=== PATIENT | male | born 1975 | race Caucasian/White ===

== ENCOUNTER 2017-03-16 22:48 | Emergency (ER) | payer BC ==
[~2017-03-16] VITALS: Ht 175.2 cm; Wt 104.3 kg
[~2017-03-16 22:48] MED LIST: ANAPROX DS550 MG PO; AUGMENTIN 875 M1 TAB PO; EFFEXOR75 MG PO; LISINOPRIL5 MG PO; LOMOTIL 0.025 M1 TA1 PO; VICODIN 500 MG-1 TAB PO
[2017-03-16 22:54] VITALS: BP 129/88
[2017-03-17] MEDS ORDERED: Motrin,Rufen800 MG PO (00:47)
[2017-03-17] MEDS ORDERED: ATIVAN0.5 MG PO (13:23)
[2017-03-17] MEDS ORDERED: ATENOLOL25 MG PO (13:24)
[2017-03-17] MEDS ORDERED: NEURONTIN300 MG PO (13:24)
[2017-03-17] MEDS ORDERED: CLARITIN10 MG PO (13:24)
[2017-03-17] MEDS ORDERED: EFFEXOR XR37.5 M1 PO (13:25)
[2017-03-17] MEDS ORDERED: XARE20MG PO (15:28)
[2017-03-17] MEDS ORDERED: XARELTO15 M1 PO (15:28)
== END 2017-03-17 02:27 | disposition home or self-care (01) ==
LOC: ED 22:48
DX: I80.00 Phlebitis and thrombophlebitis of superficial vessels of unspecified lower extremity (principal)

== ENCOUNTER 2017-03-17 10:55 | Inpatient (IN) | payer BC ==
[~2017-03-17] VITALS: Ht 175.2 cm; Wt 106.2 kg
[~2017-03-17 10:55] MED LIST changes: +Motrin,Rufen800 MG PO
[2017-03-17 11:00] VITALS: BP 127/88
[2017-03-17 11:16] LABS: BASO % 0.5 % (0.0-1.0); EOS # 0.1 10*3/uL (0.0-0.4); EOS % 1.6 % (1.0-4.0); HEMATOCRIT 46.9 % (42.0-52.0); HEMOGLOBIN 16.3 g/dl (14.0-18.0); LYMPH # 1.8 10*3/uL (1.3-4.4); LYMPH % 20.5 % (27.0-41.0); MEAN CELL VOLUME 84.4 fl (80.0-94.0); MEAN CORPUSCULAR HGB 29.3 pg (27.0-31.0); MEAN CORPUSCULAR HGB CONC 34.8 g/dl (33.0-37.0); MEAN PLATELET VOLUME 9.4 fl (9.6-12.3); MONO # 0.7 10*3/uL (0.1-1.0); MONO % 7.7 % (3.0-9.0); NEUT % 69.4 % (47.0-73.0); PLATELET COUNT AUTOMATED 189 10*3/uL (130-400); RED BLOOD COUNT 5.56 10*6/uL (4.50-5.90); RED CELL DISTRI WIDTH 12.1 % (0-14.5); WHITE BLOOD COUNT 8.6 10*3/uL (4.8-10.8)
[2017-03-17 11:24] LABS: PROTHROMBIN TIME 10.5 SECONDS (9.0-12.4)
[2017-03-17 11:35] LABS: ALKALINE PHOSPHATASE 79 U/L (45-117); BILIRUBIN, TOTAL 0.5 mg/dl (0.2-1.0); BUN 18 mg/dl (7-24); CARBON DIOXIDE 30 mmol/L (21-32); CHLORIDE 105 mmol/L (98-107); EST GLOM FILT AFRICAN AMERICAN > 60 ml/min; GLUCOSE 209 mg/dL (65-99); MAGNESIUM 1.9 mg/dL (1.5-2.1); POTASSIUM 4.1 mmol/L (3.5-5.1); SGOT/AST 27 IU/L (3-35); SGPT/ALT 70 U/L (12-78); SODIUM 140 mmol/L (136-145); TOTAL PROTEIN 7.2 gm/dL (6.4-8.2)
[2017-03-17 12:00] VITALS: BP 116/77
[2017-03-17 12:15] VITALS: BP 116/77
[2017-03-17] MEDS ORDERED: ATIVAN0.5 MG PO (13:23)
[2017-03-17] MEDS ORDERED: CLARITIN10 MG PO (13:24)
[2017-03-17] MEDS ORDERED: ATENOLOL25 MG PO (13:24)
[2017-03-17] MEDS ORDERED: NEURONTIN300 MG PO (13:24)
[2017-03-17] MEDS ORDERED: EFFEXOR XR37.5 M1 PO (13:25)
[2017-03-17] MEDS ORDERED: XARELTO15 M1 PO (15:28)
[2017-03-17] MEDS ORDERED: XARE20MG PO (15:28)
== END 2017-03-17 16:20 | disposition home or self-care (01) | DRG 301 ==
LOC: ED 10:55 → EDHOLD 11:45 → 5E 11:56
PROVIDERS: Emergency Medicine
DX: I82.442 Acute embolism and thrombosis of left tibial vein (principal); I10 Essential (primary) hypertension; F41.9 Anxiety disorder, unspecified; R73.9 Hyperglycemia, unspecified; E66.9 Obesity, unspecified; Z68.34 Body mass index [BMI] 34.0-34.9, adult; Z82.49 Family history of ischemic heart disease and other diseases of the circulatory system